=== PATIENT | male | born 1990 | race American Indian/Alaskan Native ===

== ENCOUNTER 2021-01-22 23:02 | Emergency (ER) | payer MEDICAID ==
--- NOTE | 2021-01-22 23:46 | Emergency Department Report ---
ED General Adult HPI - General Chief complaint: Medical Clearance Stated complaint: i dont want to be here PUI?: Yes Time Seen by Provider: 01/22/21 23:46 Source: patient, police, RN notes reviewed Mode of arrival: Stretcher Limitations: No Limitations - History of Present Illness Initial comments: The patient was evaluated in the emergency department for symptoms described in the history of present illness. He/she was evaluated in the context of the global COVID-19 pandemic, which necessitated consideration that the patient might be at risk for infection with the virus that causes COVID-19. Institutional protocols and algorithms that pertain to the evaluation of patients at risk for COVID-19 are in a state of rapid change based on information released by regulatory bodies including the CDC and federal and state organizations. These policies and algorithms were followed during the patient's care in the emergency department. Please note that these policies, procedures and recommendations changed on a rapid basis. During the entire history and physical examination, I had on complete personal protective equipment. The patient is a 30-year-old gentleman. He is brought to the hospital by the police department. Apparently, the patient was trying to break into a relatives house. 911 was activated, and the police took the patient into custody. I found the patient to have a low-grade temperature, and to have borderline hypoxia, and he was thus brought to the emergency room for medical evaluation. The patient states he does not want a medical evaluation. The patient admits that he is not homicidal, not suicidal, and does not have access to guns or to firearms. The patient states he is not having hallucinations. The patient states he has chronic musculoskeletal pain, which is not a new, worsened or different. The patient states he has not tried to overdose on anything. The patient also tells me that he was recently released from incarceration, and does not currently have an ID. He tells me that it is very difficult to secure employment in a place to stay, without having an official ID. The patient states he does not want to be here in the emergency room. -: This evening Quality: other Consistency: other Improves with: other Worsens with: other Associated Symptoms: other - Related Data Allergies Allergy/AdvReac Type Severity Reaction Status Date / Time No Known Allergies Allergy Unverified 09/25/20 12:16 ED Review of Systems ROS: Stated complaint: MH Other details as noted in HPI Constitutional: denies: fever Respiratory: denies: cough Cardiovascular: denies: chest pain Gastrointestinal: denies: abdominal pain Psychiatric: denies: auditory hallucinations, visual hallucinations, homicidal thoughts, suicidal thoughts ED Past Medical Hx - Past Medical History Hx Psychiatric Treatment: Yes (SCHIZOPHRENIC) Additional medical history: NECK, BACK AND HIP PAIN ED Physical Exam - General Limitations: Other (The patient declines a tactile physical examination) General appearance: alert, anxious - Head Head exam: Present: atraumatic, normocephalic - Eye Eye exam: Present: normal appearance, EOMI - ENT ENT exam: Present: normal exam, normal orophraynx, mucous membranes moist, normal external ear exam - Neck Neck exam: Present: normal inspection, full ROM - Respiratory Respiratory exam: Absent: respiratory distress, stridor - Rectal Rectal exam: Present: deferred - Extremities Exam Extremities exam: Present: normal inspection, full ROM - Back Exam Back exam: Present: normal inspection, full ROM - Neurological Exam Neurological exam: Present: alert, oriented X3, normal gait, other (No facial droop. Tongue midline. Extraocular movements intact bilaterally. Facial sensation intact to light touch in V1, V2, V3 distribution bilaterally. 5 and a 5 strength in 4 extremities. Sensation intact to light touch in 4 extremities.). Absent: motor sensory deficit - Psychiatric Psychiatric exam: Present: normal affect, anxious. Absent: homicidal ideation, suicidal ideation - Skin Skin exam: Present: normal color. Absent: warm ED Medical Decision Making - Medical Decision Making Differential diagnosis, including but not limited to: COVID-19, viral syndrome, general medical evaluation Assessment and plan: 30-year-old gentleman who was brought to the hospital by police department, after being taken into police custody when attempting to allegedly break into another house, who was found to have a low-grade temperature, and mild hypoxia, asymptomatic, brought to the hospital, for medical evaluation. The patient is refusing and declining medical evaluation at this time. The patient is alert to name, place, location and month. He is somewhat bizarre, but exhibits decision-making capacity in the lucid thought process i.e. states that he has difficulty finding a job, and finding a place to live secondary to having a lack of government ID. It is my opinion that while the patient is somewhat bizarre, he does have decision-making capacity, and I do not have grounds to place this patient on a 1013 hold, involuntary hold, or can find him in the emergency department against his will. Risks of leaving without a complete ER evaluation, discussed with the patient, including , disability, paralysis, loss of quality of life. Patient presents currently is alert, oriented, exhibiting decision-making capacity, and sober, free from distracting injury. He understands it he may return to the emergency room right away if and when he changes his mind. He will be given appropriate discharge instructions and return precautions. The patient refused vital signs. conversation witnessed by Atilio Andrews R.N. Critical care attestation.: If time is entered above; I have spent that time in minutes in the direct care of this critically ill patient, excluding procedure time. ED Disposition Clinical Impression: General medical exam, Suspected 2019-nCoV infection Disposition: [id number] LEFT AGAINST MED ADVICE Is pt being admited?: No Does the pt Need Aspirin: No Condition: Undetermined Additional Instructions: As we discussed, you have left the hospital/emergency room AGAINST MEDICAL ADVICE. By leaving, you risked , disability, paralysis, permanent loss of quality of life. The ER is open 24 hours a day, 7 days a week. It never closes. Please return to the emergency room right away if and when you change your mind. If you decide not to return to the emergency room, please follow-up with the listed physician referrals as soon as possible. As we discussed, the patient most likely has novel coronavirus/COVID. the symptoms of COVID will typically persist 10 to 14 days. There is no cure at this time for COVID. Please make certain to self isolate and self quarantine, follow-up with an outpatient primary care doctor within the next 3 to 5 days, wash hands with soap and water frequently, thoroughly and often, patient may take the prescribed medications as needed and directed. Advance diet and drink plenty of fluids as tolerated. Avoid interactions with the very elderly, very young, and those with chronic m edical conditions. Return to the emergency room right away with new pain, worsening pain, migration of pain, projectile vomiting, change in mental status, confusion, inability to tolerate liquid feeds, new, worsened or different symptoms not present on the initial emergency room evaluation. Referrals: [facility] [Provider Group] - 3-5 Days [facility] [Outside] - 3-5 Days [facility] [Primary Care Provider] - 3-5 Days Forms: AMA Form
[2021-01-23 02:34] VITALS: BP 146/81
== END 2021-01-23 00:25 | disposition left against medical advice (07) ==
LOC: ED 23:02
DX: M79.10 Myalgia, unspecified site (principal); Z20.822 Contact with and (suspected) exposure to COVID-19; Z00.00 Encounter for general adult medical examination without abnormal findings; F20.9 Schizophrenia, unspecified
CPT/HCPCS: 99282